=== PATIENT | male | born 1950 | race Caucasian/White ===

== ENCOUNTER → 2017-01-04 | Outpatient (CLI) | payer MEDICARE, BC | END | disposition home or self-care (01) | LOC: PCVCCLINIC 09:32 | PROVIDERS: ATTEND Internal Medicine Cardiovascular Disease | DX: I25.10 Atherosclerotic heart disease of native coronary artery without angina pectoris (principal); E78.00 Pure hypercholesterolemia, unspecified; E78.01 Familial hypercholesterolemia; K21.9 Gastro-esophageal reflux disease without esophagitis; Z82.49 Family history of ischemic heart disease and other diseases of the circulatory system | CPT/HCPCS: 80061; 93005; G0463 ==

== ENCOUNTER → 2017-04-09 | Outpatient (CLI) | payer MEDICARE, BC | END | disposition home or self-care (01) | LOC: PCVCCLINIC 14:20 | PROVIDERS: ATTEND Internal Medicine Cardiovascular Disease | DX: I25.118 Atherosclerotic heart disease of native coronary artery with other forms of angina pectoris (principal); E78.5 Hyperlipidemia, unspecified; K21.9 Gastro-esophageal reflux disease without esophagitis; Z95.1 Presence of aortocoronary bypass graft; Z79.82 Long term (current) use of aspirin; Z87.891 Personal history of nicotine dependence; Z79.899 Other long term (current) drug therapy | CPT/HCPCS: 80061; 93005; G0463 ==

== ENCOUNTER → 2017-07-13 | Outpatient (CLI) | payer MEDICARE, BC ==
--- NOTE | 2017-07-13 13:14 | PCVCIMAG ---
APPROVED REPORT Exam: Stress Echocardiogram Indication: CAD s/p CABG, Hyperlipidemia Patient Location: Echo lab Stress Nurse: Katherine Crockett RN Status: routine Ht: 6 ft 2 in HR: 72 bpm BP: 144/88 mmHg Rhythm: NSR Medical History Medical History: CAD s/p CABG,stent.dlp, Cardiac Risk Factors: Hyperlipidemia Previous Cardiac Procedures: PCI, CABG Pretest Chest Pain Characteristics: No chest pain Exercise History: Physically active Procedure The patient underwent an Exercise Stress Test using the Win Protocol. Blood pressure, heart rate, and EKG were monitored. An Echocardiogram was performed by cardiopulmonary technician and eeg tech in four stages in quad fashion. At peak stress, four selected images were obtained and placed side by side with resting images for comparison. Stress Test Details Stress Test: Exercise stress testing was performed using a Win protocol. HR Resting HR: 72 bpmMax Heart Rate (APMHR): 153 bpm Max HR Achieved: 148 bpmTarget HR (85% APMHR): 130 bpm % of APMHR: 96 Recovery HR: 90 bpm HR response to stress: Normal HR response to stress BP Resting BP: 144/88 mmHg Max BP: 152/80 mmHg Recovery BP: 134/78 mmHg ECG Resting ECG: Sinus Rhythm Stress ECG: Sinus Rhythm ST Change: Non-ischemic Maximum ST Deviation: 1.1 mm Arrhythmia: None Recovery ECG: Sinus Rhythm Recovery ST Change: Non-ischemic Recovery ST Deviation: 1.0 mm Recovery Arrhythmia: 1 PVC Clinical Reason for Termination: Maximal effort Stress Symptoms: none Exercise duration: 12 min sec Highest Stage Achieved: Stage 4: 4.2 mph at 16% grade. Exercise capacity: 13.7 METs Overall Exercise Capacity for Age: Good Angina Score: None No complications. Stress ECG Conclusion The patient exercised according to the Win protocol for12:00 mins; achieving a work level of 13.7 METS. The resting heart rate of 77 bpm janis to a maximal heart rate of 148 bpm. This value represents 96% of the maximal, age-predicted heart rate. The resting blood pressure of 144/88 mmHg, janis to a maximum of 152/80 mmHg. The exercise test was stopped due to fatigue. [place] Treadmill Score is 6.5 which is Low risk. Pre-Stress Echo The resting Echocardiogram showed normal left ventricular contractility with an estimated Ejection Fraction of about 55-60%. The resting Echocardiogram demonstrated wall motion abnormality in the septum consistent with CABG . Normal wall motion in all segments on baseline images except as mentioned above.. Post-Stress Echo The stress Echocardiogram showed normal left ventricular contractility with an estimated Ejection Fraction of about 65-70%. Normal augmentation of wall motion in all segments on post stress images. Clinical No clinical or ECG evidence for ischemia. Conclusion Clinical Response: Non-ischemic Exercise Capacity: Superior Stress ECG Response: Non-ischemic Stress Echo Images: Non-ischemic No clinical, EKG or echocardiographic evidence for ischemia. No echocardiographic evidence for exercise induced ischemia. Normal stress echocardiogram with maximal exercise stress. No prior study available for comparison. <Conclusion> No clinical, EKG or echocardiographic evidence for ischemia. No echocardiographic evidence for exercise induced ischemia. Normal stress echocardiogram with maximal exercise stress.
== END | disposition home or self-care (01) ==
LOC: PCVCIMAG 10:55
PROVIDERS: ATTEND Internal Medicine Cardiovascular Disease
DX: I25.10 Atherosclerotic heart disease of native coronary artery without angina pectoris (principal); E78.5 Hyperlipidemia, unspecified; K21.9 Gastro-esophageal reflux disease without esophagitis; I49.3 Ventricular premature depolarization; Z95.1 Presence of aortocoronary bypass graft
CPT/HCPCS: 93325; 93351